=== PATIENT | female | born 1950 | race Caucasian/White ===

== ENCOUNTER → 2018-08-20 | Outpatient (CLI) | payer MEDICARE, OTHER ==
--- NOTE | 2018-08-20 13:43 | WOMENS IMAGING REPORT ---
EXAM DESCRIPTION: U/S BREAST UNILAT LIMITED COMPLETED DATE/TIME: 08/20/2018 8:15 am REASON FOR STUDY: N63.20 N63.20 UNSPECIFIED LUMP IN THE LEFT BREAST, UNSPECIFIED QUAD COMPARISON: None. TECHNIQUE: Real-time and static grayscale imaging performed of the left chest wall targeted to the a rosa of mastectomy scar. Selected color Doppler images recorded. LIMITATIONS: None. FINDINGS: Post bilateral mastectomy in October 2017. Deep to the left chest wall incision, a small seroma is present between the subcutaneous fat and pect oralis muscle measuring about 4 by 1 x 1 cm in size. Superior to the small seroma along the left chest wall, 2 hypoechoic solid nodules are present, 1.7 b y 0.8 cm in size, and 0.9 by 0.7 cm in size. These could represent small inflamed lymph nodes. Fat necrosis or tumor recurrence could not entirely be excluded. Ultrasound-guided core biopsy of these nodules may be useful for followup. IMPRESSION: Small left chest wall seroma. Small solid nodules just superior to the left chest wall seroma, could represent inflamed lymph nodes . Fat necrosis or tumor recurrence could not entirely be excluded. Ultrasound-guided core biopsy of these nodules may be useful for followup. BI-RADS 4 BIRAD: BI-RADS 4, consider ultrasound-guided core biopsy and post biopsy clip placement of the nodul es along the left anterior chest wall RECOMMENDATION: RECOMMENDED FOLLOW-UP: Consider ultrasound-guided core biopsy and post biopsy clip p lacement of the nodules along the anterior left chest wall COMMENT: The [employer] ([employer]) has developed recommendations for screening MRI of the breasts in certain patient populations, to be used in conjunction with mammography. Breast MRI s urveillance may be appropriate for women with more than 20% lifetime risk of developing breast cancer as determined by genetic testing, significant family history of the disease, or history of mantle r adiation for Hodgkins Disease. [employer]CR Practice Guidelines 2008. TECHNICAL DOCUMENTATION: JOB ID: [id number] [employer]- All Rights Reserved Reading location - IP/workstation name: [email or web address]
== END ==
LOC: WI 07:33
PROVIDERS: ATTEND Internal Medicine Hematology & Oncology
DX: N63.20 Unspecified lump in the left breast, unspecified quadrant (principal); Z90.13 Acquired absence of bilateral breasts and nipples; L76.34 Postprocedural seroma of skin and subcutaneous tissue following other procedure
CPT/HCPCS: 76642

== ENCOUNTER 2018-09-13 11:46 | Day surgery (SDC) | payer MEDICARE, OTHER ==
[~2018-09-13 11:46] MED LIST: CEFAZOLIN 1 GM/D5W RTU 1 GM/50 ML RTUPB IV ONE; CEFAZOLIN 1 GM/D5W RTU 1 GM/50 ML RTUPB IV PRN; RINGERS SOLUTION,LACTATED 1,000 ML IV PRN
[2018-09-13] MEDS ORDERED: EPHEDRINE SULFATE INJ 50 MG/1 ML AMPULE ONE (12:06)
[2018-09-13] MEDS ORDERED: KETOROLAC TROMETHAMINE 60 MG/2 ML SDV ONE (12:06)
[2018-09-13] MEDS ORDERED: MIDAZOLAM 2 MG/2 ML INJ ONE (12:06)
[2018-09-13] MEDS ORDERED: FENTANYL CITRATE INJ/PF 100 MCG/2 ML AMPUL ONE (12:06)
[2018-09-13] MEDS ORDERED: ONDANSETRON HCL INJ/PF 4 MG/2 ML SDV ONE (12:07)
[2018-09-13] MEDS ORDERED: PROPOFOL INJ 200 MG/20 ML VIAL IV ONE ×2 (12:07→14:19)
[2018-09-13] MEDS ORDERED: DEXAMETHASONE SOD PHOSPHATE INJ 4 MG/1 ML VIAL ONE (12:07)
[2018-09-13] MEDS ORDERED: BUPIVACAINE HCL 0.5%-EPI 1:200000 INJ/PF 30 ML VIAL ONE (12:25)
[2018-09-13] MEDS ORDERED: DIPHENHYDRAMINE HCL 50 MG/ML VIAL IV PRN (14:45)
[2018-09-13] MEDS ORDERED: FENTANYL CITRATE INJ/PF 100 MCG/2 ML AMPUL IV PRN ×3 (14:45)
[2018-09-13] MEDS ORDERED: ONDANSETRON HCL INJ/PF 4 MG/2 ML SDV IV PRN (14:45)
[2018-09-13] MEDS ORDERED: MEPERIDINE HCL/PF INJ 25 MG/1 ML DISP.SYRIN IV PRN (14:45)
[2018-09-13] MEDS ORDERED: MORPHINE SULFATE 10 MG/ML INJ IV PRN (14:45)
[2018-09-13] MEDS ORDERED: OXYCODONE-ACETAMINOPHEN 5-325 MG TABLET PO PRN ×3 (14:45→15:12)
[2018-09-13] MEDS ORDERED: PROMETHAZINE HCL INJ 25 MG/1 ML VIAL IV PRN ×2 (14:45)
--- NOTE | 2018-09-13 15:09 | Operative Report ---
Operative Report DATE OF SURGERY: 09/13/18 PREOPERATIVE DIAGNOSIS: left breast masses POSTOPERATIVE DIAGNOSIS: left breast masses OPERATION: left breast biopsy x4 SURGEON: DAVID WALLS 1ST CLIENT SERVER DEVELOPER: VAHE CHISHOLM TISSUE REMOVED OR ALTERED: left brest tissue x4 COMPLICATIONS: none ESTIMATED BLOOD LOSS: 25cc INTRAOPERATIVE FINDINGS: see dictation PROCEDURE: see dictation
--- NOTE | 2018-09-13 15:11 | Discharge Summary ---
Discharge Summary (SDC) - Discharge Final Diagnosis: left breast mass Date of Surgery: 09/13/18 Discharge Date: 09/13/18 Condition: Good Treatment or Instructions: keep wound dry for 24hrs then ok to shower steristrips will fall off themselves. Referrals: FABIEN ARZATE [Primary Care Provider] - Discharge Diet: As Tolerated Discharge Activity: Activity As Tolerated Report the Following to Your Physician Immediately: Shortness of Breath, Nausea, Vomiting, Increase in Pain, Fever over 101 Degrees, Unusual Bleeding
--- NOTE | 2018-09-13 16:32 | OPERATIVE REPORT E ---
Operative Report NAME: EM GROVER : 1950 AGE: 67Y DATE OF SURGERY: 09/13/2018 ROOM: PREOPERATIVE DIAGNOSIS: HISTORY OF BREAST CANCER, RIGHT BREAST, STATUS POST BILATERAL MASTECTOMY NOW WITH BREAST MASS X4, LEFT. POSTOPERATIVE DIAGNOSIS: HISTORY OF BREAST CANCER, RIGHT BREAST, STATUS POST BILATERAL MASTECTOMY NOW WITH BREAST MASS X4, LEFT. OPERATION: Excision of breast mass x4, left breast. SURGEON: DAVID WALLS M.D. SETUP OPERATOR: Lakisha Palmer PA-C, for wound retraction and wound closure. INDICATIONS: This is a 67-year-old female who has recently undergone a bilateral mastectomy for right-sided breast cancer. She had a prophylactic mastectomy on the left side. She presents now for Oncology followup with Dr. Robles and she noted a number of masses underneath the transverse incision in her left breast. Ultrasound was obtained which showed questionable seroma on one of the masses but the two or three other ones along the scar on the left breast were solid and therefore we were asked to remove these to rule out any recurrent cancer. PROCEDURE: The patient was brought to the operating room awake, alert, in stable condition, placed on the operating table, in supine position and given IV sedation. The masses that were palpable under the suture line were one on the medial aspect of the suture line on the left side. There was one in the middle portion of the suture line and then two on the lateral inferior portion. We used three separate incisions. We anesthetized the skin first on the medial aspect of the suture line with 1% lidocaine plain. We made a transverse incision in the old scar, carried our dissection out through subcutaneous tissue with Bovie cautery. We identified some scar tissue that was excised with Bovie cautery and then the mass on the chest wall appeared to be breast tissue. This was excised with Bovie cautery and sent for pathology. In the middle portion of the suture line on the left breast which would be the mid axillary line, we made another transverse incision after anesthetizing the skin and we carried our dissection out through subcutaneous tissue until we reached a serous cavity that drained clear serous fluid. I excised the capsule of the cavity along with some localized breast tissue that remained and sent that down to Pathology. The third incision was made laterally at the anterior axillary line. In the old scar after anesthetizing the skin with 1% lidocaine plain, we made a longitudinal incision and then dissected down through subcutaneous tissue with Bovie cautery. We reached two separate masses both inferior to the suture line. These were both grasped with a *------* clamp, placed on traction and dissected from the anterior chest wall and the pectoralis muscle. Once these were both removed, they were sent as a third specimen to Pathology. After this was completed, we then closed the subcutaneous tissue with interrupted 3-0 Vicryl suture and then closed the skin with intracuticular 4-0 Biosyn. Steri-Strips completed the procedure. Estimated blood loss was less than 25 mL. Sponge and needle counts were correct x2. The patient was then transferred to recovery in stable condition. No complications. DICTATING PHYSICIAN: DAVID WALLS M.D. [id number] PHY#: [id number] ID: [id number] JOB#: [id number] ACCT: [id number] cc:DAVID WALLS M.D. >
[2018-09-13 16:44] VITALS: BP 150/85
== END 2018-09-13 16:40 | disposition home or self-care (01) ==
LOC: OROUT 11:46
PROVIDERS: ATTEND Surgery
DX: N64.1 Fat necrosis of breast (principal); Z85.3 Personal history of malignant neoplasm of breast; I10 Essential (primary) hypertension; E89.0 Postprocedural hypothyroidism; F41.9 Anxiety disorder, unspecified; Z88.2 Allergy status to sulfonamides; Z88.5 Allergy status to narcotic agent; Z79.899 Other long term (current) drug therapy
CPT/HCPCS: 88342 ×2; 88341 ×2; 88305 ×2; 19120; J2250; J3490; J0690; J1100; J1885; J3010; J2405; J2704; 400

== ENCOUNTER → 2020-04-21 | Outpatient (CLI) | payer MEDICARE, OTHER ==
--- NOTE | 2020-04-21 12:15 | WOMENS IMAGING REPORT ---
EXAM DESCRIPTION: BONE DENSITY HIP/SPINE IMAGES COMPLETED DATE/TIME: 04/21/2020 9:23 am REASON FOR STUDY: M81.0 AGE-RELATED OSTEOPOROSIS WITHOUT CURRENT PATHOLOGICAL FRACTURE M81.0 AGE-RE LATED OSTEOPOROSIS W/O CURRENT PATHOLOGICAL FRAC COMPARISON: None. TECHNIQUE: Dual-Energy X-ray Absorptiometry (DEXA) of the AP Spine and Hip. LIMITATIONS: None. FINDINGS: LUMBAR SPINE: The bone mineral density (BMD) measured from L1-L4 in the AP projection correlates with a T-score of 2.2, which is normal as defined by the World Health Organization. BMD Change vs Baseline: N/A HIP: The bone mineral density (BMD) measured in the left hip correlates with a T-score of -0.3, which is n ormal as defined by the World Health Organization. BMD Change vs Baseline: N/A 10 year Fracture Risk Assessment: Major Osteoporotic Fracture: Not available. Hip Fracture: Not available. IMPRESSION: 1. LUMBAR SPINE WHO CLASSIFICATION: NORMAL. 2. HIP WHO CLASSIFICATION: NORMAL. OVERALL ASSESSMENT: WHO CLASSIFICATION: NORMAL. COMMENT: The World Health Organization defines low BMD as follows: T-score: Normal: At or above -1.0 Osteopenia: Between -1.0 and -2.5 Osteoporosis: At or below -2.5 without fractures Established osteoporosis: At or below -2.5 with fractures In general, you may wish to consider: Diagnosis Treatment Follow-up DEXA Normal BMD Prevention 2-3 years Osteopenia Prevention/Therapy 1-2 years Osteoporosis Therapy Yearly TECHNICAL DOCUMENTATION: JOB ID: [id number] 2010 [employer]- All Rights Reserved Reading location - IP/workstation name: [email or web address]
== END ==
LOC: WI 08:32
PROVIDERS: ATTEND Nurse Practitioner Family
DX: M81.0 Age-related osteoporosis without current pathological fracture (principal)
CPT/HCPCS: 77080